=== PATIENT | male | born 1980 | race Caucasian/White ===

== ENCOUNTER 2021-06-07 07:50 | Emergency (ER) | payer OTHER ==
[~2021-06-07] VITALS: Ht 154.9 cm; Wt 91.2 kg
[2021-06-07] MEDS ORDERED: CLONIDINE HCL0.1 MG PO (09:26)
[2021-06-07] MEDS ORDERED: ONDANSETRON ODT4 MG PO (09:26)
[2021-06-07 09:42] LABS: BUN/CREAT RATIO (CALC) 16.2 RATIO; CREATININE 0.99 mg/dL (0.67-1.17)
== END 2021-06-07 10:45 | disposition home or self-care (01) ==
LOC: FER 07:50
PROVIDERS: Internal Medicine
DX: I16.0 Hypertensive urgency (principal); F11.23 Opioid dependence with withdrawal; I10 Essential (primary) hypertension; F17.210 Nicotine dependence, cigarettes, uncomplicated
CPT/HCPCS: 36415; 80048; 99284; J2550